=== PATIENT | male | born 1980 | race Caucasian/White ===

== ENCOUNTER 2017-05-17 21:55 | Emergency (ER) | payer OTHER ==
[~2017-05-17] VITALS: Ht 177.8 cm; Wt 81.0 kg
[2017-05-17 22:15] VITALS: BP 138/85; RESP 18; O2SAT 98
--- NOTE | 2017-05-17 22:23 | ED.REPORT ---
HPI-Ear Pain/Problem/FB Date of Service May 17, 2017 ED Provider: Nabil Kumar Patient is an otherwise healthy 36 year old male who presents to the ED complaining of R ear pain onset a few hours ago. Associated symptoms include sinus pressure onset a few days ago. He denies fever, abdominal pain, sore throat, or any other symptoms. He has been wearing ear plugs for work lately. Nursing Notes Stated Complaint: POSSIBLE EAR INFECTION Chief Complaint: ENT & Mouth Nursing Notes Reviewed: Yes Allergies: Coded Allergies: No Known Allergies (Unverified , 05/17/17) Scheduled Amoxicillin/Clav K 875-125 mg (Augmentin 875-125 mg) 1 Each Tablet 1 TABLET PO BID Scheduled PRN Ibuprofen (Ibuprofen) 600 Mg Tablet 600 MG PO QID PRN PRN For Pain General Time Seen by MD: 22:23 Chief Complaint Ear problem right Hx Obtained From: Patient Arrived By: Walk-in Onset Occurred: 1 - 4 hours ago Symptom Duration: Since onset Quality: Painful Severity: Current: Moderate Severity: Maximum: Moderate Past Medical History Past Medical History Denies Past Surgical History None reported Smoking History Light Tobacco Smoker Social History Other Social History: Good social support Ambulatory Status Independent Review of Systems Constitutional: Denies: Fever Ears / Nose / Throat: Reports: Earache right, Sinus problem, Denies: Sore throat Complete sys rev & neg: except as marked. Additional Review of Systems GI: Denies: Abdominal pain Physical Exam Initial Vital Signs Vital Signs (First) Date Time Temp Pulse Resp B/P Pulse Ox O2 Delivery O2 Flow Rate FiO2 05/17/17 22:15 36.5 92 18 138/85 98 Room Air Initial VS: Reviewed, Vital signs normal Head / Eyes: Atraumatic, Normocephalic Neck: Full range of motion Respiratory: No respiratory distress Cardiovascular: Regular rate & rhythm Skin: Warm, Dry Neurologic: Alert, Oriented, Nonfocal Psychiatric: Mood/affect normal, Behavior normal, Normal thought content General/Constitutional: Awake, Alert, No acute distress, Well developed ENT: Mucous membranes moist, Pharynx NL Swollen and erythematous R canal with a 4 mm triangular aperture Re-Eval/Medical Decision Med Decision/Clinical Course 36-year-old presents with ear pain for several otitis externa plus otitis media. Ear wick was placed and Cortisporin Otic suspension instilled. 4 times a day drops for the duration of the drops apply. Augmentin twice a day. Follow-up with PCP. Re-Evaluation/Progress : Time of Eval: 22:31 Re-Evaluation/Progress Note: Discussed plan for discharge. Patient understands and agrees with plan. All questions addressed at this time. Counseled Regarding: Diagnosis, Need for follow-up, When/why to return to ED Discharge & Departure Primary Impression: Otitis externa Otitis externa type: unspecified type Laterality: right Chronicity: acute Qualified Code: H60.501 - Unspecified acute noninfective otitis externa, right ear Additional Impressions: Otitis media Otitis media type: unspecified Laterality: right Chronicity: unspecified Qualified Code: H66.91 - Otitis media, unspecified, right ear Otalgia Laterality: right Qualified Code: H92.01 - Otalgia, right ear Disposition: Home Discharge Condition All VS Reviewed: Yes Condition: Stable Additional Instructions: Apply ear drops four times daily, four drops per dose, to the right ear. After three days, remove the wick, but continue to apply the drops four times daily. Augmentin twice daily. Follow-up with your doctor in the office. Scribe Attestation Portions of this note were transcribed by Susan Baca. I, Dr. Kumar personally performed the history, physical exam and medical decision-making; I reviewed and confirmed the accuracy of the information in the transcribed note. Signed by: Susan Baca 05/17/2017, [id number] Jon Kumar MD May 17, 2017 22:23 SUSAN BACA May 17, 2017 22:31
[2017-05-17] MEDS ORDERED: Amoxicillin-Clav 875-125 mg Tablet PO ONE (22:40)
[2017-05-17] MEDS ORDERED: Neomycin-Polymyxin-HC 10 mL Otic Suspension RIGHT_EAR ONE (22:40)
[2017-05-17] MEDS ORDERED: AMOX-366 PO (22:41)
[2017-05-17] MEDS ORDERED: IBUP-1827 PO (22:42)
[2017-05-17] MEDS ORDERED: Neomycin-Polymyxin-HC 10 mL Otic Suspension RIGHT_EAR SCH (23:00)
[2017-05-18] MEDS ORDERED: Neomycin-Polymyxin-HC 10 mL Otic Suspension RIGHT_EAR SCH (06:30)
== END 2017-05-17 23:37 | disposition home or self-care (01) ==
LOC: SED 21:55
DX: H60.501 Unspecified acute noninfective otitis externa, right ear (principal); H66.91 Otitis media, unspecified, right ear; F17.200 Nicotine dependence, unspecified, uncomplicated